=== PATIENT | female | born 1980 ===

== ENCOUNTER 2020-08-24 08:03 | Inpatient (IN) ==
[2020-08-24] MEDS ORDERED: Lactated Ringers 1000 ml BAG 1,000 ML IV ONE (08:49)
[2020-08-24] MEDS ORDERED: Buffered Lidocaine 1% SYRIN 1 ml INTRADERM ONE (08:49)
[2020-08-24] MEDS ORDERED: Lactated Ringers 1000 ml BAG 1,000 ML IV SCH (09:00)
[2020-08-24 10:56] LABS: Urine Benzodiazepine Screen None Detected (None Detect); Urine Cannabinoids Screen None Detected (None Detect); Urine Opiates Screen None Detected (None Detect)
[2020-08-24] MEDS ORDERED: Dibucaine 1% OINT 28.35 GM TUBE PR PRN (11:07)
[2020-08-24] MEDS ORDERED: Tetan/Diph/Pertus SYR(Tdap) 0.5 ML SYR(BOOSTRIX) use SYR contains LATEX IM ONE (11:07)
[2020-08-24] MEDS ORDERED: Witch Hazel PAD JAR TOPICAL PRN (11:07)
[2020-08-24] MEDS ORDERED: Glycerin ADULT 2.4 gm SUPP PR PRN (11:07)
[2020-08-25 07:06] LABS: ABS Eosinophils 0.1 10^3/ul (0-0.6); ABS Lymphocytes 2.4 10^3/ul (1.0-4.8); ABS Monocytes 0.8 10^3/ul (0-0.8); ABS Neutrophils 8.1 10^3/ul (1.5-7.7); Eosinophil % 0.7 %; Hematocrit 33 % (35-47); Lymphocyte % 20.8 %; Mean Corpuscular HGB Conc 34 g/dL (31-36); Mean Corpuscular Hemoglobin 29 pg (27-31); Mean Corpuscular Volume 84 fL (80-97); Mean Platelet Volume 10.7 fL (7.4-10.4); Platelet Count 100 10^3/uL (150-450); Red Blood Count 3.86 10^6 /uL (3.70-4.87); Red Cell Distribution Width 15 % (10-15); White Blood Count 11.4 10^3/uL (3.5-10.8)
[2020-08-25 08:32] VITALS: BP 109/69
== END 2020-08-25 14:16 | disposition home or self-care (01) | DRG 560 ==
LOC: MCHOBOUT 08:03 → MCHOB 09:15
PROVIDERS: ADMIT Midwife; ATTEND Midwife